=== PATIENT | female | born 1965 | race Caucasian/White ===

== ENCOUNTER 2016-08-15 13:18 | Outpatient (CLI) | payer BC, OTHER | END 2016-08-15 13:19 | disposition home or self-care (01) | LOC: SC 13:18 | PROVIDERS: ATTEND Nurse Practitioner Family | DX: G47.33 Obstructive sleep apnea (adult) (pediatric) (principal) | CPT/HCPCS: 99212; 99214 ==

== ENCOUNTER 2017-05-08 09:47 | Outpatient (CLI) | payer OTHER | END 2017-05-08 09:48 | disposition home or self-care (01) | LOC: SC 09:47 | PROVIDERS: ATTEND Nurse Practitioner Family | DX: G47.33 Obstructive sleep apnea (adult) (pediatric) (principal) | CPT/HCPCS: 99212; 99213 ==

== ENCOUNTER 2017-05-28 11:23 | Outpatient (CLI) | payer OTHER ==
--- NOTE | 2017-05-30 12:13 | XRAY Report ---
DATE OF SERVICE: 05/28/2017 TWO VIEW THORACIC SPINE: 05/28/2017 CLINICAL INDICATION: Pain. FINDINGS: Frontal and lateral views of the thoracic spine demonstrate a short segment dextroscoliosi s of the upper thoracic spine, measuring 23 degrees between the pedicles of T2 and T5. There is no evidence o f compression fracture. No paraspinal hematoma is seen. IMPRESSION: Short segment dextroscoliosis of the upper thoracic spine, with no significant compensat ory levoscoliosis identified. TD: 05/28/2017 20:45
== END 2017-05-28 11:24 | disposition home or self-care (01) ==
LOC: DI 11:23
PROVIDERS: ATTEND Nurse Practitioner Primary Care
DX: M41.84 Other forms of scoliosis, thoracic region (principal)
CPT/HCPCS: 72070

== ENCOUNTER 2017-10-21 09:28 | Day surgery (SDC) | payer OTHER ==
[2017-10-21] MEDS ORDERED: MIDAZOLAM 2 MG/2 ML VIAL IVP ONE (10:00)
[2017-10-21] MEDS ORDERED: fentaNYL 250 MCG/5 ML VIAL IVP ONE (10:00)
[2017-10-21] MEDS ORDERED: LACTATED RINGERS 1,000 ML IV ONE (10:02)
[2017-10-21 10:59] VITALS: BP 123/57
== END 2017-10-21 09:29 | disposition home or self-care (01) ==
LOC: SDS 09:28
PROVIDERS: ATTEND Surgery
PROC: 0DJD8ZZ Inspection of Lower Intestinal Tract, Via Natural or Artificial Opening Endoscopic (ICD-10-PCS; principal; 2017-10-21 10:30)
DX: Z12.11 Encounter for screening for malignant neoplasm of colon (principal); K64.8 Other hemorrhoids; I10 Essential (primary) hypertension; E78.5 Hyperlipidemia, unspecified
CPT/HCPCS: 45378; J7120

== ENCOUNTER 2018-06-04 08:21 | Outpatient (CLI) | payer OTHER | END 2018-06-04 08:22 | disposition home or self-care (01) | LOC: SC 08:21 | PROVIDERS: ATTEND Nurse Practitioner Family | DX: G47.33 Obstructive sleep apnea (adult) (pediatric) (principal) | CPT/HCPCS: 99212; 99214 ==

== ENCOUNTER 2020-01-29 08:56 | Outpatient (CLI) | payer OTHER ==
--- NOTE | 2020-01-29 09:34 | XRAY Report ---
PROCEDURE: Hip 1 View RT INDICATIONS: BUTTOCK PAIN TECHNIQUE: 2 views of the hip were acquired. COMPARISON: None. FINDINGS: Bones: No fractures or dislocations. No periosteal reaction seen. No suspicious bony lesions. The visualized pelvic ring appears intact. Soft tissues: No suspicious soft tissue calcifications or masses. IUD in the pelvis. IMPRESSION: No fracture or dislocation. Reviewed by: Torito Burger MD on 01/29/2020 9:33 AM PDT Approved by: Torito Burger MD on 01/29/2020 9:33 AM PDT Station ID: [id number]
== END 2020-01-29 08:57 | disposition home or self-care (01) ==
LOC: DI.WCP 08:56
PROVIDERS: ATTEND Family Medicine
DX: M54.5 Low back pain (principal); M53.3 Sacrococcygeal disorders, not elsewhere classified

== ENCOUNTER 2020-11-05 02:25 | Emergency (ER) | payer OTHER ==
--- NOTE | 2020-11-05 02:42 | ED Physician Documentation ---
History of Present Illness - Stated complaint Stated Complaint: POST VACCINE/LEG PX - Chief complaint Chief Complaint: Ext Problem - History obtained from History obtained from: Patient - History of Present Illness Timing: Enter time (22:00), Today Pain level now: 4 Improved by: nothing Worsened by: no exacerbating factors - Additonal information Additional information: patient had J+J COVID vaccine today at approximately 6:30 PM. At approximately 10 PM she had gradual onset right calf pain with sensation of swelling although she does not see any swelling. Denies trauma, denies chest pain, denies dyspnea. Review of Systems Constitutional: denies: Fever, Chills, Myalgias, Sweats Musculoskeletal: reports: Extremity pain PD PAST MEDICAL HISTORY - Past Medical History Past Medical History: Yes Cardiovascular: Hypertension Respiratory: Sleep apnea, CPAP use Endocrine/Autoimmune: HyPOthyroidism GI: GERD : Frequency HEENT: None Psych: None Musculoskeletal: Osteoarthritis Derm: None - Past Surgical History Past Surgical History: Yes Ortho: Carpal Tunnel surgery /C4 PLANNER: Breast implants Cardiovascular: Other - Present Medications Home Medications: Ambulatory Orders Medication Instructions Recorded Confirmed Levothyroxine [Synthroid] 0.5 mg ORAL DAILY 03/08/16 11/05/20 Oxybutynin [Ditropan] 5 mg PO DAILY 03/08/16 11/05/20 amLODIPine [Norvasc] 5 mg ORAL DAILY 03/08/16 11/05/20 traMADol [Ultram] 50 tab ORAL DAILY 03/08/16 11/05/20 HYDROcod/ACETAM 5/325 [Lyons 5/325] 1 - 2 tablet PO Q6H PRN #10 tablet 11/05/20 Naltrexone HCl 50 mg PO DAILY 11/05/20 11/05/20 - Allergies Allergies/Adverse Reactions: Allergies Allergy/AdvReac Type Severity Reaction Status Date / Time Penicillins Allergy Rash Verified 11/05/20 02:31 - Social History Does the pt smoke?: No Smoking Status: Never smoker Does the pt drink ETOH?: Yes Does the pt have substance abuse?: No - Immunizations Immunizations are current?: Yes - POLST Patient has POLST: No PD ED PE NORMAL - Vitals Vital signs reviewed: Yes - General General: Alert and oriented X 3, No acute distress, Well developed/nourished - Derm Derm: Normal color, Warm and dry - Extremities Extremities: No tenderness to palpate, No edema, Other (brisk capillary refill in toes (right)) PD ED PE EXPANDED - Extremities Extremities: Pedal Pulses Present Results - Vitals Vitals: Vital Signs - 24 hr 11/05/20 11/05/20 02:32 04:54 Temperature 36.6 C 36.0 C L Heart Rate 86 78 Respiratory 16 16 Rate Blood Pressure 146/81 H 134/73 H O2 Saturation 97 97 Oxygen O2 Source Room air - Rads (name of study) RLE US w/ doppler Radiology: Prelim report reviewed, See rad report PD MEDICAL DECISION MAKING - ED course Complexity details: reviewed results, re-evaluated patient, considered differential, d/w patient ED course: patient presents with atraumatic RLE pain and sensation of swelling without visually noticeable swelling. RLE US is negative for DVT and patient is reassure d with this result and is comfortable with d/c home. She requests pain medication for the RLE pain as well as generalized headache; she has already taken ibuprofen without improvement; we discussed options such as tramadol, vicodin. She is familiar with both of these medications and prefers vicodin for this pain, as she feels the tramadol will likely not be strong enough Departure - Departure Disposition: 01 Home, Self Care Clinical Impression: Pain of lower extremity Condition: Good Instructions: ED Acute Pain [facility] Follow-Up: Eugenia Jewell PA-C [Primary Care Provider] - Prescriptions: HYDROcod/ACETAM 5/325 [Lyons 5/325] 1 - 2 tablet PO Q6H PRN #10 tablet PRN Reason: Pain Discharge Date/Time: 11/05/20 04:55
[2020-11-05] MEDS ORDERED: HYDROcod/ACETAM 5/325 MG TABLET PO STA (04:44)
[2020-11-05 04:59] VITALS: BP 134/73
--- NOTE | 2020-11-05 09:46 | Ultrasound Report ---
PROCEDURE: Duplex Ext Veins Right INDICATIONS: right leg pain, swelling TECHNIQUE: Real-time imaging, as well as color and pulse Doppler interrogation, were performed of the lower extr emity deep veins from the inguinal ligament to the popliteal fossa. COMPARISON: None. FINDINGS: The deep veins are normally compressible, and free of intraluminal thrombus. Color and pu lse Doppler demonstrate normal phasic intraluminal flow. There is normal augmentation response to di stal compression maneuver. IMPRESSION: No DVT found. Reviewed by: Andrew Real MD on 11/05/2020 8:45 AM [facility] Approved by: Andrew Real MD on 11/05/2020 8:45 AM [facility] Station ID: [id number]
== END 2020-11-05 04:55 | disposition home or self-care (01) ==
LOC: ED 02:25
DX: M79.661 Pain in right lower leg (principal); R51.9 Headache, unspecified; I10 Essential (primary) hypertension
CPT/HCPCS: 93971; 99283; 99284; A9270

== ENCOUNTER 2021-10-25 09:35 | Outpatient (CLI) | payer OTHER ==
[2021-10-25 12:33] LABS: BASOPHILS % (AUTO) 0.3 %; EOSINOPHILS # (AUTO) 0.2 10^3/uL (0.0-0.7); EOSINOPHILS % (AUTO) 2.6 %; HCT - HEMATOCRIT 42.7 % (37.0-47.0); LYMPHOCYTES # (AUTO) 2.6 10^3/uL (1.5-3.5); LYMPHOCYTES % (AUTO) 41.9 %; MEAN CORPUSCULAR HEMOGLOBIN 29.5 pg (27.0-31.0); MEAN CORPUSCULAR HGB CONC 32.8 g/dL (32.0-36.0); MEAN CORPUSCULAR VOLUME 90.1 fL (81.0-99.0); MEAN PLATELET VOLUME 10.7 fL (7.9-10.8); MONOCYTES # (AUTO) 0.5 10^3/uL (0.0-1.0); MONOCYTES % (AUTO) 7.6 %; NEUTROPHILS # (AUTO) 2.9 10^3/uL (1.5-6.6); NEUTROPHILS % (AUTO) 47.3 %; PLT - PLATELET COUNT 282 10^3/uL (130-450); RED BLOOD COUNT 4.74 10^6/uL (4.20-5.40); RED CELL DISTRIBUTION WIDTH 13.2 % (12.0-15.0); WHITE BLOOD COUNT 6.2 x10^3/uL (4.8-10.8)
[2021-10-25 12:38] LABS: ALBUMIN 4.4 g/dL (3.2-5.5); ALBUMIN/GLOBULIN RATIO 1.4 (1.0-2.2); ALKALINE PHOSPHATASE 72 IU/L (42-121); ALT ALANINE AMINOTRANSFERASE 36 IU/L (10-60); AST ASPARTATE AMINOTRANSFERASE 27 IU/L (10-42); BILIRUBIN,TOTAL 0.7 mg/dL (0.2-1.0); BUN - BLOOD UREA NITROGEN 14 mg/dL (6-20); CALCIUM 9.3 mg/dL (8.5-10.3); CARBON DIOXIDE - CO2 24 mmol/L (21-32); CHLORIDE 104 mmol/L (101-111); CHOL/HDL RATIO 3.5 (<4.4); CHOLESTEROL 202 mg/dL; CREATININE 0.7 mg/dL (0.4-1.0); GFR - MDRD 87 (>89); GLUCOSE 88 mg/dL (70-100); HDL CHOLESTEROL 57 mg/dL; LDL CHOLESTEROL,CALCULATED 114 mg/dL; POTASSIUM 4.1 mmol/L (3.5-5.0); SODIUM 139 mmol/L (135-145); TOTAL PROTEIN 7.6 g/dL (6.7-8.2); TRIGLYCERIDES 155 mg/dL; VLDL CHOLESTEROL 31 mg/dL
[2021-10-25 12:50] LABS: THYROID STIMULATING HORMONE 1.38 uIU/mL (0.34-5.60)
== END 2021-10-25 09:36 | disposition home or self-care (01) ==
LOC: LAB.N 09:35
PROVIDERS: ATTEND Physician Assistant Medical
DX: Z00.00 Encounter for general adult medical examination without abnormal findings (principal); E03.8 Other specified hypothyroidism
CPT/HCPCS: 36415; 80053; 80061; 83721; 84443; 85025

== ENCOUNTER 2022-05-02 15:47 | Outpatient (CLI) | payer OTHER ==
[2022-05-03 08:04] VITALS: BP 128/70
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
== END 2022-05-02 15:48 | disposition home or self-care (01) ==
LOC: SC 15:47
PROVIDERS: ATTEND Nurse Practitioner Family
DX: G47.33 Obstructive sleep apnea (adult) (pediatric) (principal); E66.01 Morbid (severe) obesity due to excess calories; Z68.41 Body mass index [BMI] 40.0-44.9, adult
CPT/HCPCS: 99203; 99212

== ENCOUNTER 2022-05-11 07:50 | Emergency (ER) | payer OTHER ==
--- NOTE | 2022-05-11 08:09 | ED Physician Documentation ---
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 She reports that last night she looked up to the left and twisted her neck slightly and felt a sudden disorientation associated with dizziness and tension in her neck.The patient does not otherwise feel ill and was not ill prior to this event.Since this event she is reluctant to move it very much as she feels she may have more spasm in her neck. She has recently started Lyrica and Wellbutrin over 1 month ago. She states she has been feeling better with this. Review of Systems Constitutional: reports: Myalgias. denies: Fever Eyes: denies: Decreased vision Ears: denies: Ear pain Nose: denies: Rhinorrhea / runny nose, Congestion Throat: denies: Sore throat Cardiac: denies: Chest pain / pressure, Palpitations Respiratory: denies: Dyspnea, Cough GI: denies: Abdominal Pain, Nausea, Vomiting : reports: Incontinent. denies: Dysuria, Frequency Skin: denies: Rash Musculoskeletal: reports: Neck pain. denies: Back pain, Extremity pain Neurologic: reports: Headache, Other (dizziness). denies: Generalized weakness, Focal weakness, Numbness, Difficulty speaking, Altered mental status, Head injury, LOC PD PAST MEDICAL HISTORY - Past Medical History Cardiovascular: Hypertension Respiratory: Sleep apnea, CPAP use Endocrine/Autoimmune: HyPOthyroidism GI: GERD : Frequency HEENT: None Psych: None Musculoskeletal: Osteoarthritis Derm: None - Past Surgical History Past Surgical History: Yes Ortho: Carpal Tunnel surgery /IT [employer] DEVELOPMENT CONSULTANT: Breast implants Cardiovascular: Other - Present Medications Home Medications: Ambulatory Orders Medication Instructions Recorded Confirmed Levothyroxine [Synthroid] 0.5 mg ORAL DAILY 03/08/16 05/02/22 Oxybutynin [Ditropan] 5 mg PO DAILY 03/08/16 05/02/22 amLODIPine [Norvasc] 5 mg ORAL DAILY 03/08/16 05/02/22 traMADol [Ultram] 50 tab ORAL DAILY 03/08/16 05/02/22 Diclofenac Potassium See Rx Instructions .ROUTE .COMPLEX 05/02/22 05/02/22 Pregabalin [Lyrica] See Rx Instructions .ROUTE .COMPLEX 05/02/22 05/02/22 Triamterene See Rx Instructions .ROUTE .COMPLEX 05/02/22 05/02/22 buPROPion [Wellbutrin Sr] See Rx Instructions .ROUTE .COMPLEX 05/02/22 05/02/22 Ciprofloxacin HCl [Cipro] 500 mg PO BID #14 tablet 05/11/22 - Allergies Allergies/Adverse Reactions: Allergies Allergy/AdvReac Type Severity Reaction Status Date / Time Penicillins Allergy Rash Verified 05/11/22 07:59 - Social History Does the pt smoke?: No Smoking Status: Never smoker Does the pt drink ETOH?: Yes Does the pt have substance abuse?: No - Immunizations Immunizations are current?: Yes - POLST Patient has POLST: No PD ED PE NORMAL - Vitals Vital signs reviewed: Yes (hypertensive mild ) - General General: Alert and oriented X 3, No acute distress, Well developed/nourished - HEENT HEENT: Atraumatic, PERRL, EOMI, Ears normal, Pharynx benign, Dentition benign. 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, No motor deficit, No sensory deficit, Normal speech Eye Opening: Spontaneous Motor: Obeys Commands Verbal: Oriented GCS Score: 15 - Psych Psych: Normal mood, Normal affect Results - Vitals Vitals: Vital Signs - 24 hr 05/11/22 07:54 Temperature 36.2 C L Heart Rate 80 Respiratory 18 Rate Blood Pressure 134/72 H O2 Saturation 96 Oxygen O2 Source Room air - Labs Labs: Laboratory Tests 05/11/22 05/11/22 05/11/22 09:16 09:16 11:33 WBC 12.3 H RBC 4.77 Hgb 13.9 Hct 43.6 MCV 91.4 MCH 29.1 MCHC 31.9 L RDW 13.2 Plt Count 263 MPV 10.6 Neut # (Auto) 9.1 H Lymph # (Auto) 2.3 [place] # (Auto) 0.8 Eos # (Auto) 0.1 Baso # (Auto) 0.0 Absolute Nucleated RBC 0.00 Nucleated RBC % 0.0 Sodium 139 Potassium 4.5 Chloride 104 Carbon Dioxide 25 Anion Gap 10.0 BUN 20 Creatinine 0.9 Estimated GFR (MDRD) 65 L Glucose 105 H Calcium 9.3 Total Bilirubin 0.6 AST 24 ALT 22 Alkaline Phosphatase 68 Total Protein 7.9 Albumin 4.1 Globulin 3.8 Albumin/Globulin Ratio 1.1 Lipase 30 Urine Color YELLOW Urine Clarity HAZY Urine pH 5.5 Ur Specific [place] <=1.005 Urine Protein NEGATIVE Urine Glucose (UA) NEGATIVE Urine Ketones NEGATIVE Urine Occult Blood NEGATIVE Urine Nitrite NEGATIVE Urine Bilirubin NEGATIVE Urine Urobilinogen 0.2 (NORMAL) Ur Leukocyte Esterase NEGATIVE Urine RBC None Seen Urine WBC 6-10 H Ur Squamous Epith Cells RARE Squamous Urine Bacteria Many H Ur Microscopic Review INDICATED Urine Culture Comments INDICATED - Rads (name of study) CTA neck Radiology: Prelim report reviewed (Impression: No significant carotid abnormality can be seen. No significant vertebral artery abnormality can be seen. Yes-man of stenosis included in the report of the imaging study was calculated using the NASCET method.), EMP read indepedently, See rad report CTA head Radiology: Prelim report reviewed (Impression: No acute intracranial finding. 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 She has pain in the left side of her neck. My concern was for carotid dissection and CTA of the head and neck were performed. The studies were normal. We did find on further evaluation the patient appeared dehydrated on interrogation of the inferior vena cava with POCUS. She was administered intravenous saline after her CTA of head and neck. She felt improved. Her urinalysis showed evidence of infection. I requestion the patient regarding symptoms. She does have urinary incontinence and uses Ditropan for that. She has not noted a difference in her urination. She has had urinary tract infection previously and is interested in treatment. Departure - Departure Disposition: 01 Home, Self Care Clinical Impression: Dehydration UTI (urinary tract infection) Qualifiers: Urinary tract infection type: acute cystitis Hematuria presence: without hematuria Qualified Code(s): N30.00 - Acute cystitis without hematuria Condition: Stable Instructions: ED Dehydration, ED UTI Cystitis Female Follow-Up: Eugenia Jewell PA-C [Primary Care Provider] - Prescriptions: Ciprofloxacin HCl [Cipro] 500 mg PO BID #14 tablet Comments: Veronica, today it looks like you were dehydrated and I suspect this is part of the reason for your dizziness and neck spasm. We did not find any evidence of vascular abnormality to the head or neck. We did find evidence of a urinary tract infection and you have previously had problems with pyelonephritis. We have elected to treat this despite your lack of symptoms. Cipro has been E scribed to the [facility] in [place].
[2022-05-11] MEDS ORDERED: iohexoL-300 100 ML VIAL ONE (09:12)
[2022-05-11 09:25] LABS: BASOPHILS % (AUTO) 0.2 %; EOSINOPHILS # (AUTO) 0.1 10^3/uL (0.0-0.7); EOSINOPHILS % (AUTO) 0.6 %; HCT - HEMATOCRIT 43.6 % (37.0-47.0); HGB - HEMOGLOBIN 13.9 g/dL (12.0-16.0); LYMPHOCYTES # (AUTO) 2.3 10^3/uL (1.5-3.5); LYMPHOCYTES % (AUTO) 18.4 %; MEAN CORPUSCULAR HEMOGLOBIN 29.1 pg (27.0-31.0); MEAN CORPUSCULAR HGB CONC 31.9 g/dL (32.0-36.0); MEAN CORPUSCULAR VOLUME 91.4 fL (81.0-99.0); MEAN PLATELET VOLUME 10.6 fL (7.9-10.8); MONOCYTES # (AUTO) 0.8 10^3/uL (0.0-1.0); MONOCYTES % (AUTO) 6.2 %; NEUTROPHILS # (AUTO) 9.1 10^3/uL (1.5-6.6); NEUTROPHILS % (AUTO) 74.2 %; PLT - PLATELET COUNT 263 10^3/uL (130-450); RED BLOOD COUNT 4.77 10^6/uL (4.20-5.40); RED CELL DISTRIBUTION WIDTH 13.2 % (12.0-15.0); WHITE BLOOD COUNT 12.3 x10^3/uL (4.8-10.8)
[2022-05-11 09:52] LABS: ALBUMIN 4.1 g/dL (3.2-5.5); ALBUMIN/GLOBULIN RATIO 1.1 (1.0-2.2); BILIRUBIN,TOTAL 0.6 mg/dL (0.2-1.0); CALCIUM 9.3 mg/dL (8.5-10.3); CREATININE 0.9 mg/dL (0.4-1.0); TOTAL PROTEIN 7.9 g/dL (6.7-8.2)
[2022-05-11 09:53] LABS: POTASSIUM 4.5 mmol/L (3.5-5.0)
[2022-05-11] MEDS ORDERED: iohexoL-300 100 ML VIAL IVP ONE (10:38)
[2022-05-11] MEDS ORDERED: SODIUM CHLORIDE 0.9% 1,000 ML IV STA (10:50)
--- NOTE | 2022-05-11 10:54 | CT Report ---
PROCEDURE: ANGIO HEAD W/WO INDICATIONS: L neck pain L headache ataxia CONTRAST: 80ml omni 300 TECHNIQUE: Precontrast 4.5 mm thick angled axial sections acquired from the foramen magnum to the vertex. Afte r the administration of intravenous contrast, 1 mm thick sections acquired through the [place] of [place] is. Postcontrast 4.5 mm thick sections then re-acquired from the foramen magnum to the vertex. 3-di mensional nfvjpds-owcfhvtyy-cxpawbevoi (MIP) and/or volume rendering reformats were acquired of the c entral intracranial vasculature. For radiation dose reduction, the following was used: automated ex posure control, adjustment of mA and/or kV according to patient size. COMPARISON: None. FINDINGS: Image quality: Excellent. Anterior circulation: Intracranial internal carotid arteries are normal in size and flow. The flow within the paired anterior cerebral arteries is normal and symmetric. The flow within the middle cer ebral arteries is normal and symmetric. The anterior communicating artery is seen. No aneurysms are seen. Posterior circulation: Visualized portions of the vertebral arteries demonstrate normal caliber, and join to form a normal appearing basilar artery. Flow within the posterior cerebral arteries is norm al and symmetric. No aneurysms are seen. CSF spaces: Ventricles are normal in size and shape. Basal cisterns are patent. No extra-axial flu id collections. Brain: No midline shift. No intracranial bleeds or masses. [place]-white matter interface appears int act. Skull and face: Calvarium and facial bones appear intact, without suspicious lesions. Sinuses: Visualized sinuses and mastoids are clear. IMPRESSION: No acute intracranial finding. No significant intracranial vascular abnormality. Reviewed by: Vinay Erickson MD on 05/11/2022 9:52 AM [facility] [[email or web address]] Approved by: Vinay Erickson MD on 05/11/2022 9:52 AM [facility] [[email or web address]] Station ID: [id number]
--- NOTE | 2022-05-11 11:31 | CT Report ---
PROCEDURE: ANGIO NECK W INDICATIONS: L neck pain, ataxia CONTRAST: 80ml omni 300 TECHNIQUE: After the administration of intravenous contrast, 1.5 mm axial sections acquired from the aortic arch to the [place] of [place]. Coronal 3-D maximum intensity projection (MIP) and/or volume rendering ref ormats were then performed. For radiation dose reduction, the following was used: automated exposur e control, adjustment of mA and/or kV according to patient size. COMPARISON: Correlation is made with the accompanying head CT angiogram, 05/11/2022. FINDINGS: Image quality: Excellent. Carotid system: The great vessels demonstrate a conventional anatomy as they arise from the aortic a rch. The origins of the common carotid arteries appear patent. The common carotid arteries demonstr ate normal calibers and courses. The bifurcation regions appear normal bilaterally. The internal ca rotid arteries demonstrate normal caliber and course. Posterior circulation: The origins of the vertebral arteries appear patent. The more superior porti ons of the vertebral arteries demonstrate normal course and caliber. They join to form a normal appe aring basilar artery. Soft tissues: Visualized neck soft tissues demonstrate no suspicious abnormalities. The thyroid is normal in size and there are no incidental findings. Bones: No suspicious bony lesions. Visualized cervical spine appears normally aligned. Mild to mode rate cervical spine degenerative change can be seen. 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 IMPRESSION: No significant carotid abnormality can be seen. No significant vertebral artery abnormality can be seen. The estimate of stenosis included in the report of the imaging study was calculated using the NASCET method Reviewed by: Noé Abad MD on 05/11/2022 10:30 AM [facility] Approved by: Noé Abad MD on 05/11/2022 10:30 AM [facility] Station ID: [id number]
[2022-05-11 11:39] LABS: BILIRUBIN,URINE NEGATIVE (NEGATIVE); CLARITY,URINE HAZY (CLEAR); GLUCOSE, URINE (UA) NEGATIVE (NEGATIVE); KETONES,URINE (UA) NEGATIVE (NEGATIVE); LEUKOCYTE ESTERASE, URINE NEGATIVE (NEGATIVE); NITRITE,URINE NEGATIVE (NEGATIVE); OCCULT BLOOD,URINE NEGATIVE (NEGATIVE); PH,URINE 5.5 PH (5.0-7.5); PROTEIN,URINE NEGATIVE (NEGATIVE); UROBILINOGEN,URINE 0.2 (NORMAL) E.U./dL (NORMAL)
[2022-05-11 11:51] LABS: BACTERIA,URINE Many /HPF (None Seen); RBC,URINE None Seen /HPF (0-5); SQUAMOUS EPITHELIAL CELL,UR RARE Squamous (<= Few)
[2022-05-11 12:56] VITALS: BP 129/82
== END 2022-05-11 12:56 | disposition home or self-care (01) ==
LOC: ED 07:50
DX: E86.0 Dehydration (principal); N30.00 Acute cystitis without hematuria
CPT/HCPCS: 36415; 70496; 70498; 80053; 81001; 83690; 85025; 87086; 87181; 93005; 96360; 99284; Q9967; 81003

== ENCOUNTER 2022-06-13 13:33 | Outpatient (CLI) | payer OTHER ==
--- NOTE | 2022-06-13 19:17 | XRAY Report ---
PROCEDURE: Knee 3 View LT INDICATIONS: KNEE PAIN,LEFT TECHNIQUE: 3 views of the left knee(s) were acquired. COMPARISON: None. FINDINGS: Bones: No fractures or dislocations. No suspicious bony lesions. Mild medial lateral compartmental joint space narrowing Soft tissues: No joint effusion. No suspicious soft tissue calcifications. IMPRESSION: Mild joint space narrowing Reviewed by: Eddie Carballo MD on 06/13/2022 6:16 PM [place] Approved by: Eddie Carballo MD on 06/13/2022 6:16 PM [facility] Station ID: [id number]
== END 2022-06-13 13:34 | disposition home or self-care (01) ==
LOC: DI 13:33
PROVIDERS: ATTEND Physician Assistant Medical
DX: M25.562 Pain in left knee (principal)

== ENCOUNTER 2022-08-29 11:23 | Outpatient (CLI) | payer OTHER ==
[2022-08-29 11:50] VITALS: BP 128/80
--- NOTE | 2022-08-29 11:50 | SLEEP CARE CONSULTATION ---
Information from patient questionnaire entered by Ximena Ramirez. I have reviewed and concur with the information entered by Ximena Ramirez. This document represents the service I personally performed and the decisions made by me, Fariba Langford ARNP. History of Present Illness Service Date and Time: 08/29/2022 1123 Previous diagnosis: Mild, Obstructive Sleep Apnea-Hypopnea Syndrome AHI: 6.4 (in 2016) Reason for follow up: first compliance after device update (SET UP 05/16/22) Equipment type: CPAP (RESMED Airsense 11) Equipment obtained from: [facility] (getting supplies) Mask style: Nasal pillows Mask brand: [employer] (Brevida) Backup mask available: Yes (old mask) Last cushion change: needs supplies Prior sleep studies: Yes ([employer] 5YRS AGO HST) Year and Where: 2015 HPI additional information: AASHISH BALDWIN was diagnosed to have mild, AHI 6.4, obstructive sleep apnea- hypopnea syndrome and returned today for CPAP therapy first compliance after updating device follow-up. Sleep Study - Results Prior sleep studies: Yes ([employer] 5YRS AGO HST) Year and Where: 2015 CPAP Compliance Data - Data Reviewed with Patient Average duration of nightly device use: 8 hours 9 minutes Compliance rate %: 97 ( days used) Current pressure setting (cmH2O): 4-12 Average residual AHI: 2.8 Central apnea: 0.1 Obstructive apnea: 2.1 Subjective Patient concerns: reports: dry mouth, nose, throat (dry mouth). denies: aerophagia, mask discomfort, air blowing in eyes, mask leak noise, condensation in mask/hose, nasal congestion, epistaxis Observed to snore while using device: No Current pressure setting perceived as: comfortable On therapy, patient: reports: sleeping better, awakening more refreshed, being more awake and alert during the day, more rested overall. denies: drowsiness while driving Initial [place] Sleepiness Scale score: 3 (05/02/2022) Current [place] Sleepiness Scale score: 2 (08/29/22) Allergies and Home Medications Known drug allergies: Yes (penicillins) Drug allergies reviewed: Yes Home medication list reviewed: Yes (Lyrica increased to 150 mg bid; Diclofenac 50 mg 2 x day; Bupropion stopped) Allergy and home medication list: Allergies Penicillins Allergy (Verified 08/28/22 16:31) Rash Review of Systems Review of systems same as previous: Yes (no changes) Physical Exam Vital signs obtained and entered by: XIMENA Dixon MA Blood Pressure: 128/80 (LEFT ARM) Cuff size: regular Heart Rate: 72 O2 Saturation: 96 Height: 5 ft 2 in Weight: 222 lb 9.6 oz Weight change since last visit: 4 lb loss Body Mass Index: 40.7 BMI Classification: Morbidly Obese Impression and Plan 1. Obstructive Sleep Apnea-Hypopnea Syndrome, mild, with good treatment com pliance and good apnea control. On CPAP therapy, the patient has better sleep quality and is more rested overall. Patient has significant improvement of their sleep apnea and is satisfied with current CPAP therapy. Patient still has some oral dryness but states is not a problem. She tried the Young[employer] Brevida nasal pillows mask and feels it is much more comfortable. Patient's apnea severity and rationale for treatment to reduce apnea, improve sleep quality and reduce cardiovascular and cerebrovascular events was reviewed. I also reviewed the benefit of consistent device use of CPAP for fibromyalgia. 2. Obesity, unspecified. Currently patients BMI is 40.7. She has lost weight. Obesity increases the risk of apnea, CPAP pressure requirements and overall health risks especially cardiovascular and diabetes. Thus patient is advised to continue to try to lose weight. The patient's CPAP pressure range should accommodate some weight loss. * Continue auto CPAP pressure at 4-12 cmH2O * Notify me if snoring with mask or feeling that the pressure is too much or too little * Attempt to lose weight * Call this office if any problems using CPAP * Return for follow up in 1 year, or sooner if concerns arise Counseling Topics: Spare mask, Weight loss health impact Visit Type: In Office Time Spent with Patient (minutes): 20 Provider Statement: I spent 100% of the Face to Face Visit with the patient with greater than 50% spent counseling the patient and coordination of care.
== END 2022-08-29 11:24 | disposition home or self-care (01) ==
LOC: SC 11:23
PROVIDERS: ATTEND Nurse Practitioner Family
DX: G47.33 Obstructive sleep apnea (adult) (pediatric) (principal); E66.01 Morbid (severe) obesity due to excess calories; Z68.41 Body mass index [BMI] 40.0-44.9, adult
CPT/HCPCS: 99212; 99213

== ENCOUNTER 2023-05-03 07:43 | Outpatient (CLI) | payer OTHER ==
[2023-05-03 13:08] LABS: ESTIMATED AVERAGE GLUCOSE 120 mg/dL (70-100); HEMOGLOBIN A1c% 5.8 % (4.27-6.07)
== END 2023-05-03 07:44 | disposition home or self-care (01) ==
LOC: LAB.N 07:43
PROVIDERS: ATTEND Physician Assistant Medical
DX: E88.810 Metabolic syndrome (principal)
CPT/HCPCS: 36415; 83036